=== PATIENT | male | born 1960 | race Caucasian/White ===

== ENCOUNTER 2017-01-28 11:09 | Emergency (ER) | payer BC ==
[2017-01-28 11:25] VITALS: BP 130/84
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
== END 2017-01-28 12:13 | disposition home or self-care (01) ==
LOC: MW.ED 11:09
DX: R13.10 Dysphagia, unspecified (principal); R47.02 Dysphasia; E78.00 Pure hypercholesterolemia, unspecified
CPT/HCPCS: 99283